=== PATIENT | male | born 1985 | race Caucasian/White ===

== ENCOUNTER 2016-11-27 21:20 | Emergency (ER) | payer OTHER ==
--- NOTE | 2016-11-27 22:22 | ERPHSYRPT ---
- History of Present Illness Time Seen by Provider: 11/27/16 22:14 Source: patient Exam Limitations: no limitations Patient Subjective Stated Complaint: per pt "i was using my leg a lot at work the other day. since then, it has been very swollen. i felt like i could not hardly walk on it when i woke up this morning. i worked all day today, but just can't take it any more" Triage Nursing Assessment: aox3, breathign easy unalbored,skin pink warm dry, steady limping gait, swellig noted to right lower extremity Physician History: Patient is a 31-year-old male with a significant past medical surgical history of intramedullary susan in his right tibia followed by of plates and screws after the susan had broken the shaft of the tibia. 3 days ago the patient was using the foot control pills on a bulldozer with his right leg and noticed the next day that his leg was hurting especially at the knee. Then 2 days ago he was transferred to another piece of equipment where he didn't have to use his right leg. Then this weekend he was helping a friend with work around the house. He states that for the past 2-3 days his right knee has been swollen and painful. It feels like it catches and moves out of place every so often while walking. Method of Injury: unknown Occurred: days ago (3) Quality: aching, sharpness Severity of Pain-Max: moderate Severity of Pain-Current: moderate Lower Extremities Pain: knee: right Modifying Factors: Improves With: cold therapy Associated Symptoms: popping sensation Allergies/Adverse Reactions: No Known Drug Allergies Allergy (Verified 11/27/16 21:47) Hx Tetanus, Diphtheria Vaccination/Date Given: No Hx Influenza Vaccination/Date Given: No Hx Pneumococcal Vaccination/Date Given: No - Review of Systems Constitutional: No Fever, No Chills Eyes: No Symptoms Ears, Nose, & Throat: No Symptoms Respiratory: No Cough, No Dyspnea Cardiac: No Chest Pain, No Edema, No Syncope Abdominal/Gastrointestinal: No Abdominal Pain, No Nausea, No Vomiting, No Diarrhea Genitourinary Symptoms: No Dysuria Musculoskeletal: Joint Pain, Joint Swelling Skin: No Rash Neurological: No Dizziness, No Focal Weakness, No Sensory Changes Psychological: No Symptoms Endocrine: No Symptoms Hematologic/Lymphatic: No Symptoms Immunological/Allergic: No Symptoms All Other Systems: Reviewed and Negative - Past Medical History Pertinent Past Medical History: Yes Neurological History: Migraines ENT History: No Pertinent History Cardiac History: No Pertinent History Respiratory History: No Pertinent History Endocrine Medical History: No Pertinent History Musculoskeletal History: Fractures, Other GI Medical History: No Pertinent History History: No Pertinent History Psycho-Social History: Depression Male Reproductive Disorders: No Pertinent History Other Medical History: states has had lyme disease. GOUT - Past Surgical History Past Surgical History: Yes Neuro Surgical History: No Pertinent History Cardiac: No Pertinent History Respiratory: No Pertinent History Gastrointestinal: No Pertinent History Genitourinary: No Pertinent History Musculoskeletal: Orthopedic Surgery Male Surgical History: No Pertinent History Other Surgical History: RIGHT LOWER LEG - Social History Smoking Status: Never smoker How long have you smoked: YRS Exposure to second hand smoke: No Alcohol Use: Socially Drug Use: none Patient Lives Alone: No Significant Family History: no pertinent family hx - Nursing Vital Signs Nursing Vital Signs: Initial Vital Signs Temperature 98.7 F Temperature Source Oral Pulse Rate 81 Respiratory Rate 16 Blood Pressure [Right Arm] 141/83 Pain Intensity 7 - Physical Exam General Appearance: mild distress Eyes, Ears, Nose, Throat Exam: moist mucous membranes Neck Exam: non-tender, supple Cardiovascular/Respiratory Exam: chest non-tender, normal breath sounds, regular rate/rhythm, no respiratory distress Gastrointestinal/Abdominal Exam: non-tender, guarding Back Exam: normal inspection, No vertebral tenderness Hips Exam: bilateral: non-tender, normal inspection Knees Exam: right knee: nodules (Examination of the right knee and proximal lower leg reveals old scarring from prior surgeries. There is swelling with possible effusion of the right knee. There is significant medial joint line tenderness of the right knee. There is pain elicited on varus maneuver of the right knee.) Ankle Exam: bilateral ankle: non-tender Foot Exam: bilateral foot: non-tender Neuro/Tendon Exam: normal sensation, normal motor functions Mental Status Exam: alert, oriented x 3, cooperative Skin Exam: normal color, warm, dry SpO2 Interpretation: normal SpO2: 97 Oxygen Delivery: Room Air - Radiology Exams Right Lower Leg X-ray Interpretation: Interpreted by me, No Fracture, Other (ORIF hardware intact, Callous formation in proximal tibia and fibula, No acute bony abnormalities.) Right Knee X-ray Interpretation: Interpreted by me, No Fracture, Other (Hardware intact, no acute bony abnormalities.) Ordered Tests: Active Orders 24 hr Category Date Time Status Cold Application STAT Care 11/27/16 22:27 Active KNEE (3 VIEWS) Stat Exams 11/27/16 22:28 Ordered LOWER LEG Stat Exams 11/27/16 22:28 Ordered Medication Summary Discontinued Medications Generic Name Dose Route Start Last Admin Trade Name Mathieu PRN Reason Stop Dose Admin Ketorolac Tromethamine 60 mg 11/27/16 22:27 11/27/16 22:38 Toradol 30 Mg Injection IM 11/27/16 22:28 60 mg STAT ONE Administration Ketorolac Tromethamine Confirm 11/27/16 22:36 Toradol 30 Mg Injection Administered 11/27/16 22:37 Dose 60 mg .ROUTE .STK-MED ONE - Progress Progress: improved Counseled pt/family regarding: diagnosis, need for follow-up, rad results - Departure Time of Disposition: 23:24 Departure Disposition: Home Clinical Impression: Knee pain Condition: Stable Critical Care Time: No Additional Instructions: The x-rays of your knee and leg on the right side did not show any acute abnormalities, although you do have chronic changes present in the knee. The swelling that you have experienced could be due to an overuse of the knee and the chronic conditions that are present or he could be due to a meniscal injury. Take naproxen 500 mg twice a day as needed and ice her knee as needed. Follow-up with your primary medical doctor for further care. Prescriptions: Naproxen 500 mg PO BID PRN #30 tablet
[2016-11-27] MEDS ORDERED: TORAdol 30 mg Injection IM ONE (22:27)
[2016-11-27] MEDS ORDERED: TORAdol 30 mg Injection ONE (22:36)
[2016-11-27 22:58] VITALS: BP 141/83; PULSE 81
[2016-11-27 23:26] VITALS: O2SAT 97
--- NOTE | 2016-11-28 08:44 | XRAY ---
Indication: Pain and swelling. No recent injury. Comparison: None 4 projections of the right knee demonstrates tiny inferior patellar spurring and old fractures of the proximal tibia/fibula with intact tibial plateau fixation plate/screws and adjacent heterotopic ossifications. No other bony, articular, or soft tissue abnormalities.
--- NOTE | 2016-11-28 08:46 | XRAY ---
Indication: Pain and swelling. No recent injury. Comparison: None AP/lateral right lower leg demonstrates spurring of the patella and calcaneus with old fractures of the proximal tibia/fibula with intact tibial plateau fixation plate/screws and adjacent heterotopic ossifications. No other bony, articular, or soft tissue abnormalities.
== END 2016-11-27 23:36 | disposition home or self-care (01) ==
LOC: ED 21:20
DX: M25.561 Pain in right knee (principal); M25.461 Effusion, right knee; X50.0XXA Overexertion from strenuous movement or load, initial encounter
CPT/HCPCS: 73562; 73590; 96372; 99284; J1885

== ENCOUNTER 2016-11-30 12:03 | Emergency (ER) | payer OTHER ==
[2016-11-30] MEDS ORDERED: solu-MEDROL 125 MG ONE (14:03)
[2016-11-30] MEDS ORDERED: solu-MEDROL 125 MG IV ONE (14:09)
[2016-11-30 14:21] VITALS: BP 157/87; PULSE 70; O2SAT 100
--- NOTE | 2016-11-30 14:48 | ERPHSYRPT ---
- History of Present Illness Time Seen by Provider: 11/30/16 12:45 Source: patient Exam Limitations: no limitations Patient Subjective Stated Complaint: LT FOOT PAIN SINCE 0300 Triage Nursing Assessment: STATES HE FEELS LIKE IT IS GOUT PAIN SINCE 0300 THIS MORNING. DENIES INJURY. NO SWELLING OR BRUISING NOTED. RADIAL PULSE PRESENT. DORSAL LT FOOT PAIN FROM ANKLE TO TOES. Physician History: C/O left foot pain like prior episodes of gout. He was given perscription for Naproxen 2 days ago, but did not get it filled. He wishes a shot like he has had previously for his gout. 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.) Occurred: yesterday Quality: constant Severity of Pain-Max: moderate Severity of Pain-Current: moderate Modifying Factors: Improves With: movement Allergies/Adverse Reactions: No Known Drug Allergies Allergy (Verified 11/30/16 12:49) Hx Tetanus, Diphtheria Vaccination/Date Given: Yes Hx Influenza Vaccination/Date Given: No Hx Pneumococcal Vaccination/Date Given: No Immunizations Up to Date: Yes - Review of Systems Constitutional: No Symptoms Eyes: No Symptoms Ears, Nose, & Throat: No Symptoms Respiratory: No Symptoms Cardiac: No Symptoms Abdominal/Gastrointestinal: No Symptoms Musculoskeletal: Joint Pain Skin: No Symptoms Neurological: No Symptoms Psychological: No Symptoms Endocrine: No Symptoms Hematologic/Lymphatic: No Symptoms - Past Medical History Pertinent Past Medical History: Yes Neurological History: Migraines ENT History: No Pertinent History Cardiac History: No Pertinent History Respiratory History: No Pertinent History Endocrine Medical History: No Pertinent History Musculoskeletal History: Fractures, Other GI Medical History: No Pertinent History History: No Pertinent History Psycho-Social History: Depression Male Reproductive Disorders: No Pertinent History Other Medical History: states has had lyme disease. GOUT - Past Surgical History Past Surgical History: Yes Neuro Surgical History: No Pertinent History Cardiac: No Pertinent History Respiratory: No Pertinent History Gastrointestinal: No Pertinent History Genitourinary: No Pertinent History Musculoskeletal: Orthopedic Surgery Male Surgical History: No Pertinent History Other Surgical History: RIGHT LOWER LEG-SCREWS/PLATES - Social History Smoking Status: Never smoker How long have you smoked: YRS Exposure to second hand smoke: No Alcohol Use: Socially Drug Use: none Patient Lives Alone: Yes Significant Family History: no pertinent family hx - Nursing Vital Signs Nursing Vital Signs: Initial Vital Signs Temperature 97.9 F Temperature Source Oral Pulse Rate 70 Respiratory Rate 18 Blood Pressure [Right Arm] 157/87 Pain Intensity 2 - Physical Exam General Appearance: mild distress Eyes, Ears, Nose, Throat Exam: normal ENT inspection, pharynx normal Neck Exam: normal inspection, non-tender, supple, full range of motion Cardiovascular/Respiratory Exam: chest non-tender, regular rate/rhythm Back Exam: normal inspection Hips Exam: bilateral: non-tender Legs Exam: bilateral leg: non-tender Knees Exam: bilateral knee: non-tender Ankle Exam: bilateral ankle: non-tender Foot Exam: left foot: no evidence of injury, pain, soft tissue tenderness, swelling Neuro/Tendon Exam: normal sensation, normal motor functions, normal tendon functions Mental Status Exam: alert, oriented x 3, cooperative Skin Exam: normal color, warm, dry SpO2 Interpretation: normal SpO2: 100 Oxygen Delivery: Room Air - Course Nursing assessment & vital signs reviewed: Yes Ordered Tests: Medication Summary Discontinued Medications Generic Name Dose Route Start Last Admin Trade Name Freq PRN Reason Stop Dose Admin Methylprednisolone Sodium Succinate Confirm 11/30/16 14:03 Solu-Medrol 125 Mg Administered 11/30/16 14:04 Dose 125 mg .ROUTE .STK-MED ONE Methylprednisolone Sodium Succinate 125 mg 11/30/16 14:09 11/30/16 14:10 Solu-Medrol 125 Mg IV 11/30/16 14:10 125 mg STAT ONE Administration - Progress Progress: improved Counseled pt/family regarding: diagnosis, need for follow-up - Departure Time of Disposition: 14:45 Departure Disposition: Home Clinical Impression: Gout due to renal impairment, left ankle and foot Gout Qualifiers: Gout site: foot Gout etiology: unspecified cause Laterality: left Chronicity: acute Qualified Code(s): M10.9 - Gout, unspecified Condition: Stable Critical Care Time: No
== END 2016-11-30 15:04 | disposition home or self-care (01) ==
LOC: ED 12:03
DX: N28.9 Disorder of kidney and ureter, unspecified (principal); M10.372 Gout due to renal impairment, left ankle and foot
CPT/HCPCS: 96372; 99284; J2930

== ENCOUNTER 2017-01-23 22:02 | Emergency (ER) | payer OTHER ==
[2017-01-23 23:14] VITALS: BP 150/84
--- NOTE | 2017-01-23 23:35 | ERPHSYRPT ---
- History of Present Illness Time Seen by Provider: 01/23/17 23:26 Source: patient Patient Subjective Stated Complaint: PT REPORTS CHISEL EXPLODED ET HE FELT A PIECE OF METAL GO INTO HIS RIGHT ARM-REPORTS PAIN IRRITATION Triage Nursing Assessment: PT PINK WARM ET [id number] EASY ET NONLABORED- REDNESS NOTED TO AC OF RIGHT ARM BLEEDING CONTROLLED Physician History: This is a 31-year-old white male previously healthy he arrives with complaint of foreign body in his right arm since around 9:30 this evening. According to the patient he was working with friend in a friend he was hammering with a chisel had a piece of the chisel came off and struck patient in the right antecubital fossa patient has a very small laceration to the right antecubital fossa he states he feels as if there is a foreign body in his right arm/antecubital area. He denies any other complaints. He states that his tetanus is up-to-date. Past medical history is positive for fractures and depression and Lyme disease as well as gout. Past surgical history ORIF right lower leg. . Occurred: this evening (9:30 this evening) Method of Injury: other ( hit bypiece of chisel right forearm) Extremities Pain Location: elbow: right (right antecubital area) Modifying Factors: Improves With: nothing Associated Symptoms: none Allergies/Adverse Reactions: No Known Drug Allergies Allergy (Verified 01/23/17 23:14) Home Medications: Febuxostat [Uloric] 40 mg PO DAILY 01/23/17 [History] Prednisone 10 mg [Deltasone 10 mg] 10 mg PO UD 01/23/17 [History] Hx Tetanus, Diphtheria Vaccination/Date Given: Yes Hx Influenza Vaccination/Date Given: No Hx Pneumococcal Vaccination/Date Given: No Immunizations Up to Date: Yes - Review of Systems Constitutional: No Fever, No Chills Eyes: No Symptoms Ears, Nose, & Throat: No Symptoms Respiratory: No Cough, No Dyspnea Cardiac: No Chest Pain, No Edema, No Syncope Abdominal/Gastrointestinal: No Abdominal Pain, No Nausea, No Vomiting, No Diarrhea Genitourinary Symptoms: No Dysuria Musculoskeletal: Other (foreign body sensation right arm antecubital area) Skin: No Rash Neurological: No Dizziness, No Focal Weakness, No Sensory Changes Psychological: No Symptoms Endocrine: No Symptoms All Other Systems: Reviewed and Negative - Past Medical History Pertinent Past Medical History: Yes Neurological History: Migraines ENT History: No Pertinent History Cardiac History: No Pertinent History Respiratory History: No Pertinent History Endocrine Medical History: No Pertinent History Musculoskeletal History: Fractures, Other GI Medical History: No Pertinent History History: No Pertinent History Psycho-Social History: Depression Male Reproductive Disorders: No Pertinent History Other Medical History: states has had lyme disease. GOUT - Past Surgical History Past Surgical History: Yes Neuro Surgical History: No Pertinent History Cardiac: No Pertinent History Respiratory: No Pertinent History Gastrointestinal: No Pertinent History Genitourinary: No Pertinent History Musculoskeletal: Orthopedic Surgery Male Surgical History: No Pertinent History Other Surgical History: RIGHT LOWER LEG-SCREWS/PLATES - Social History Smoking Status: Never smoker How long have you smoked: YRS Exposure to second hand smoke: No Alcohol Use: Socially Drug Use: none Patient Lives Alone: Yes Significant Family History: no pertinent family hx - Nursing Vital Signs Nursing Vital Signs: Initial Vital Signs Temperature 97.9 F Temperature Source Oral Pulse Rate 85 Respiratory Rate 22 Blood Pressure [] 150/84 Pain Intensity 2 - Physical Exam General Appearance: alert Eyes, Ears, Nose, Throat Exam: moist mucous membranes Neck Exam: non-tender, supple Cardiovascular/Respiratory Exam: chest non-tender Abdominal Exam: non-tender, No guarding Back Exam: normal inspection, No vertebral tenderness Shoulder Exam: normal inspection, non-tender, no evidence of injury, normal ROM Elbow/Forearm Exam: normal ROM, No normal inspection (very small 2 mm by less than 1 mmlaceration right anterior forearm) Wrist Exam: normal inspection, non-tender, no evidence of injury, normal ROM Hand Exam: normal inspection, non-tender, no evidence of injury, normal ROM Neuro/Tendon Exam: normal sensation, normal motor functions Mental Status Exam: alert, oriented x 3, cooperative Skin Exam: normal color, warm, dry, other (very small 2 mm by less than 1 mm laceration right anterior antecubital fossa) SpO2 Interpretation: normal SpO2: 100 Oxygen Delivery: Room Air - Radiology Exams Right Elbow X-ray Interpretation: Interpreted by me, Other (1 mm x 2 mm foreign body soft tissue right elbow) Ordered Tests: Active Orders 24 hr Category Date Time Status Wound Care STAT Care 01/23/17 23:37 Active ELBOW (MINIMUM 3 VIEWS) Stat Exams 01/23/17 23:17 Ordered Medication Summary Discontinued Medications Generic Name Dose Route Start Last Admin Trade Name Mathieu PRN Reason Stop Dose Admin Bacitracin 0.9 gm 01/23/17 23:37 Baciguent Packet TP 01/23/17 23:38 STAT ONE - Progress Progress: improved Progress Note: 01/23/17 23:38 This is a 31-year-old white male who was struck with a chip off of a chisel at around 9:30 he has a small laceration to the anterior right antecubital area. He has no neurologic changes he has good refill to his a right hand and fingers he has good strength his right hand and fingers sensation is intact to the right hand and fingers full range of motion to all extremities. X-rays of the patient's right elbow is remarkable for a 1 x 2 mm foreign body in the soft tissues of the right medial arm. I've talked with the patient is unadvisable to go exploring for this at this time we will go ahead and clean the area his tetanus is up-to-date Will recommend Advil for pain and follow-up with Dr. Maxwell. - Departure Time of Disposition: 23:40 Departure Disposition: Home Clinical Impression: Foreign body (FB) in soft tissue Condition: Fair Critical Care Time: No Additional Instructions: Return home, Clean area and apply bacitracin daily. Advil 2-3 tablets orally every 6 hours or Tylenol every 4 hours as needed for pain. Follow-up with Dr. Day or your family doctor. Return for acute distress or for severe symptoms. With that cold packs to area 24-48 hours.
[2017-01-23] MEDS ORDERED: BACIGUENT PACKET TP ONE (23:37)
[2017-01-23] MEDS ORDERED: BACIGUENT PACKET ONE (23:41)
[2017-01-23 23:57] VITALS: PULSE 81; O2SAT 97
--- NOTE | 2017-01-24 09:16 | XRAY ---
Indication: Foreign body following injury. Comparison: None 3 views of the right elbow demonstrates tiny 3 mm linear anterior soft tissue foreign body. No other bony, articular, or soft tissue abnormalities.
== END 2017-01-23 23:57 | disposition home or self-care (01) ==
LOC: ED 22:02
DX: S40.851A Superficial foreign body of right upper arm, initial encounter (principal); W22.8XXA Striking against or struck by other objects, initial encounter
CPT/HCPCS: 73080; 99283; A9270-GY

== ENCOUNTER 2021-06-14 23:59 | Emergency (ER) | payer BC ==
[2021-06-15] MEDS ORDERED: Rocephin 1000 MG INJ IM ONE (00:28)
[2021-06-15] MEDS ORDERED: XYLOCAINE 1% HCL 20 ML MDV IJ ONE (00:29)
[2021-06-15] MEDS ORDERED: Rocephin 1000 MG INJ ONE (00:29)
--- NOTE | 2021-06-15 00:34 | ERPHSYRPT ---
- History of Present Illness Source: patient Exam Limitations: no limitations Patient Subjective Stated Complaint: C/O hearing loss and ear pain. Pain in left ear is worse than the right ear. States he was seen on for throat and ear pain and was diagnosed with strep throat and given a z-pack atb. States that it "feels like I am underwater" most of the time. States pain in ears increases when lying down so he prefers to sit up. States he no longer has any pain in his throat. Triage Nursing Assessment: Throat is red and swollen wit some pustules present. Patient is noted to have difficulties hearing; must speak in a loud, clear tone during assessment. This nurse had to repeat herself at times due to hearing impairment. No drainage noted from ears. Physician History: 36 yo wm w B otalgia x4 days. Pt just finished a Zpak yesterday for pharyngitis(empirical diagnosis). He has had mild coryza/mild cough wo fever/nausea/vomiting/ diarrhea. Timing/Duration: other (4 days) Cough Quality/Degree: dry cough Possible Cause: no prior episodes Associated Symptoms: cough, earache, nasal congestion, nasal drainage, sore throat, No fever, No chills, No chest pain/soreness, No dizziness, No facial pain, No headache, No muscle aches, No shortness of breath, No sinus infection, No wheezing Allergies/Adverse Reactions: No Known Drug Allergies Allergy (Verified 06/15/21 00:23) Hx Tetanus, Diphtheria Vaccination/Date Given: Yes Hx Influenza Vaccination/Date Given: No Hx Pneumococcal Vaccination/Date Given: No Immunizations Up to Date: Yes Travel Risk - International Travel Have you traveled outside of the country in past 3 weeks: No - Coronavirus Screening Are you exhibiting any of the following symptoms?: No Close contact with a COVID-19 positive Pt in past 14-21 Days: No - Vaccine Status Have you recieved a Covid-19 vaccination: No - Review of Systems Constitutional: No Symptoms Eyes: No Symptoms Ears, Nose, & Throat: No Symptoms, Ear Pain, Hearing Changes, Nose Congestion, Nose Discharge Respiratory: No Symptoms, Cough Cardiac: No Symptoms Abdominal/Gastrointestinal: No Symptoms Genitourinary Symptoms: No Symptoms Musculoskeletal: No Symptoms Skin: No Symptoms Neurological: No Symptoms Psychological: No Symptoms Endocrine: No Symptoms Hematologic/Lymphatic: No Symptoms Immunological/Allergic: No Symptoms - Past Medical History Pertinent Past Medical History: Yes Neurological History: Migraines ENT History: No Pertinent History Cardiac History: No Pertinent History Respiratory History: No Pertinent History Endocrine Medical History: No Pertinent History Musculoskeletal History: Fractures, Other GI Medical History: No Pertinent History History: No Pertinent History Psycho-Social History: Depression Male Reproductive Disorders: No Pertinent History Other Medical History: states has had lyme disease. GOUT - Past Surgical History Past Surgical History: Yes Neuro Surgical History: No Pertinent History Cardiac: No Pertinent History Respiratory: No Pertinent History Gastrointestinal: Appendectomy Genitourinary: No Pertinent History Musculoskeletal: Orthopedic Surgery Male Surgical History: No Pertinent History Other Surgical History: RIGHT LOWER LEG-SCREWS/PLATES, Knee scope - Social History Smoking Status: Former smoker How long have you smoked: YRS Exposure to second hand smoke: No Alcohol Use: Socially Drug Use: none Patient Lives Alone: Yes Significant Family History: no pertinent family hx - Nursing Vital Signs Nursing Vital Signs: Initial Vital Signs Temperature 97.8 F 06/15/21 00:07 Pulse Rate 117 H 06/15/21 00:07 Respiratory Rate 17 06/15/21 00:07 Blood Pressure 161/119 06/15/21 00:07 O2 Sat by Pulse Oximetry 97 06/15/21 00:07 Pain Scale Pain Intensity [Both ears] 8 Pain Intensity 8 Tachy/hypertensive - Physical Exam General Appearance: no apparent distress Eye Exam: PERRL/EOMI, eyes nml inspection Ears, Nose, Throat Exam: moist mucous membranes, TM abnormal (R) (Erythema w poor landmarks), TM abnormal (L) (Erythema w poor landmarks), pharyngeal erythema Neck Exam: normal inspection, non-tender, supple, full range of motion, No meningismus, No mass, No Brudzinski, No Kernig's Respiratory Exam: normal breath sounds, lungs clear, airway intact, No respiratory distress Cardiovascular Exam: tachycardia (Mildly tachy), No murmur Gastrointestinal/Abdomen Exam: soft, normal bowel sounds, No tenderness Back Exam: normal inspection, normal range of motion Extremity Exam: normal inspection, normal range of motion Neurologic Exam: alert, oriented x 3, cooperative, 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, normal mood/affect, nml station & gait Skin Exam: normal color, warm, dry, No rash Lymphatic Exam: No adenopathy SpO2 Interpretation: normal SpO2: 97 O2 Delivery: Room Air - Course Nursing assessment & vital signs reviewed: Yes Ordered Tests: Medication Summary Discontinued Medications Generic Name Dose Route Start Last Admin Trade Name Mathieu PRN Reason Stop Dose Admin Ceftriaxone Sodium 1,000 mg 06/15/21 00:28 06/15/21 00:31 Rocephin 1000 Mg Inj IM 06/15/21 00:29 1,000 mg STAT ONE Administration Ceftriaxone Sodium Confirm 06/15/21 00:29 Rocephin 1000 Mg Inj Administered 06/15/21 00:30 Dose 1,000 mg .ROUTE .STK-MED ONE Ketorolac Tromethamine 60 mg 06/15/21 00:43 06/15/21 00:46 Toradol 30 Mg Injection IM 06/15/21 00:44 60 mg STAT ONE Administration Ketorolac Tromethamine Confirm 06/15/21 00:45 Toradol 30 Mg Injection Administered 06/15/21 00:46 Dose 60 mg .ROUTE .STK-MED ONE - Progress Progress Note: 06/15/21 00:37 1gm IM Rocephin Counseled pt/family regarding: diagnosis, need for follow-up - Departure Departure Disposition: Home Clinical Impression: Otitis media Condition: Stable Critical Care Time: No Referrals: JUNO FRAZIER NP [Primary Care Provider] - Additional Instructions: Start Augmentin in the morning Motrin/Tylenol for pain Follow up with your family MD about blood pressure Prescriptions: Amoxicillin/Potassium Clav [Augmentin 875-125 Tablet] 1 each PO BID 10 Days #20 tablet
[2021-06-15] MEDS ORDERED: TORAdol 30 mg Injection IM ONE (00:43)
[2021-06-15] MEDS ORDERED: TORAdol 30 mg Injection ONE (00:45)
[2021-06-15 00:58] VITALS: BP 152/112; PULSE 106; O2SAT 95
== END 2021-06-15 01:01 | disposition home or self-care (01) ==
LOC: ED 23:59
DX: H66.93 Otitis media, unspecified, bilateral (principal)
CPT/HCPCS: 96372; 99284; J0696; J1885

== ENCOUNTER 2021-09-18 13:57 | Emergency (ER) | payer BC ==
[2021-09-18] MEDS ORDERED: MORPHINE SULFATE 4 MG INJ IV ONE (14:20)
[2021-09-18] MEDS ORDERED: Zofran 4 MG/2 ML VIAL IV ONE (14:20)
--- NOTE | 2021-09-18 14:27 | ERPHSYRPT ---
- History of Present Illness Time Seen by Provider: 09/18/21 14:02 Historian: patient Exam Limitations: no limitations Patient Subjective Stated Complaint: Pt states "I have pain in my bladder and both sides of lower abdomen." Triage Nursing Assessment: Pt presented alert and oriented X 3, skin pwd Pt ambulates with an upright steady gait, able to speak in clear full sentences pt in no apaprent respiratory distress. Physician History: 36-year-old male presented in the ER with chief complaint of lower abdominal pain since last night, moderate intensity, reports razor blade pain intermittent without any significant aggravating or relieving factors. Patient thinks it is probably bladder infection and has been taking Azo with no significant relief. Radiation to the back without associated nausea vomiting or diarrhea. Timing/Duration: yesterday, constant, gradual onset, worse Activities at Onset: rest Quality: sharpness Abdominal Pain Onset Location: RLQ, LLQ, suprapubic Pain Radiation: back Severity of Pain-Max: severe Severity of Pain-Current: moderate Modifying Factors: Worsens With: movement, palpation Associated Symptoms: back Previous symptoms: no prior history Allergies/Adverse Reactions: No Known Drug Allergies Allergy (Verified 06/15/21 00:23) Home Medications: Allopurinol 300 mg [Zyloprim 300 mg] 300 mg PO DAILY 09/18/21 [History] Hx Tetanus, Diphtheria Vaccination/Date Given: Yes Hx Influenza Vaccination/Date Given: No Hx Pneumococcal Vaccination/Date Given: No Immunizations Up to Date: Yes Travel Risk - International Travel Have you traveled outside of the country in past 3 weeks: No - Coronavirus Screening Are you exhibiting any of the following symptoms?: No Close contact with a COVID-19 positive Pt in past 14-21 Days: No - Vaccine Status Have you recieved a Covid-19 vaccination: No - Review of Systems Constitutional: No Symptoms Eyes: No Symptoms Ears, Nose, & Throat: No Symptoms Respiratory: No Symptoms Cardiac: No Symptoms Abdominal/Gastrointestinal: No Symptoms Genitourinary Symptoms: Dysuria Musculoskeletal: No Symptoms Skin: No Symptoms Neurological: No Symptoms Psychological: No Symptoms Endocrine: No Symptoms Hematologic/Lymphatic: No Symptoms Immunological/Allergic: No Symptoms - Past Medical History Pertinent Past Medical History: Yes Neurological History: Migraines ENT History: No Pertinent History Cardiac History: No Pertinent History Respiratory History: No Pertinent History Endocrine Medical History: No Pertinent History Musculoskeletal History: Fractures, Other GI Medical History: No Pertinent History History: No Pertinent History Psycho-Social History: Depression Male Reproductive Disorders: No Pertinent History Other Medical History: states has had lyme disease. GOUT - Past Surgical History Past Surgical History: Yes Neuro Surgical History: No Pertinent History Cardiac: No Pertinent History Respiratory: No Pertinent History Gastrointestinal: Appendectomy Genitourinary: No Pertinent History Musculoskeletal: Orthopedic Surgery Male Surgical History: No Pertinent History Other Surgical History: RIGHT LOWER LEG-SCREWS/PLATES, Knee scope - Social History Smoking Status: Former smoker How long have you smoked: YRS Exposure to second hand smoke: No Alcohol Use: Socially Drug Use: none Patient Lives Alone: Yes Significant Family History: no pertinent family hx - Nursing Vital Signs Nursing Vital Signs: Initial Vital Signs Temperature 98.5 F 09/18/21 14:04 Pulse Rate 108 H 09/18/21 14:04 Respiratory Rate 20 09/18/21 14:04 Blood Pressure 178/108 09/18/21 14:04 O2 Sat by Pulse Oximetry 98 09/18/21 14:04 Pain Scale Pain Intensity 4 - Physical Exam General Appearance: no apparent distress, alert Eye Exam: PERRL/EOMI, eyes nml inspection Ears, Nose, Throat Exam: normal ENT inspection, TMs normal, pharynx normal Neck Exam: normal inspection, non-tender, supple, full range of motion Respiratory Exam: normal breath sounds, lungs clear Cardiovascular Exam: regular rate/rhythm, normal heart sounds Gastrointestinal/Abdomen Exam: soft, normal bowel sounds, tenderness (Lower abdomen more on the suprapubic and left lower quadrant) Male Genitalia Exam: No hernia Back Exam: normal inspection, normal range of motion, No CVA tenderness Extremity Exam: normal inspection, normal range of motion, pelvis stable Neurologic Exam: alert, oriented x 3, cooperative Skin Exam: normal color SpO2 Interpretation: normal SpO2: 98 O2 Delivery: Room Air Ordered Tests: Active Orders 24 hr Category Date Time Status IV Insertion STAT Care 09/18/21 14:20 Completed NPO (ED) STAT Care 09/18/21 14:20 Completed ABDOMEN AND PELVIS W/0 CONTRAS [CT] Stat Exams 09/18/21 14:21 Completed CBC W DIFF Stat Lab 09/18/21 14:55 Completed CMP Stat Lab 09/18/21 14:55 Completed LIPASE Stat Lab 09/18/21 14:55 Completed UA W/RFX UR CULTURE Stat Lab 09/18/21 14:21 Completed Medication Summary Discontinued Medications Generic Name Dose Route Start Last Admin Trade Name Mathieu PRN Reason Stop Dose Admin Amoxicillin/Clavulanate Potassium 875 mg 09/18/21 15:48 09/18/21 15:52 Amox Tr/Potassium Clavulanate 875 Mg Tablet PO 09/18/21 15:49 875 mg STAT ONE Administration Amoxicillin/Clavulanate Potassium Confirm 09/18/21 15:51 Amox Tr/Potassium Clavulanate 875 Mg Tablet Administered 09/18/21 15:52 Dose 875 mg .ROUTE .STK-MED ONE Morphine Sulfate 4 mg 09/18/21 14:20 09/18/21 14:44 Morphine Sulfate 4 Mg/Ml Injection IV 09/18/21 14:21 4 mg STAT ONE Administration Morphine Sulfate Confirm 09/18/21 14:33 Morphine Sulfate 4 Mg/Ml Injection Administered 09/18/21 14:34 Dose 4 mg .ROUTE .STK-MED ONE Ondansetron HCl 4 mg 09/18/21 14:20 09/18/21 14:44 Ondansetron Hcl 4 Mg/2 Ml Vial IV 09/18/21 14:21 4 mg STAT ONE Administration Ondansetron HCl Confirm 09/18/21 14:33 Ondansetron Hcl 4 Mg/2 Ml Vial Administered 09/18/21 14:34 Dose 4 mg .ROUTE .STK-MED ONE Lab/Rad Data: Laboratory Result Diagrams 09/18/21 14:55 09/18/21 14:55 Laboratory Results 09/18/21 09/18/21 09/18/21 Range/Units 14:55 14:55 14:21 WBC 11.8 H (4.0-10.5) K/mm3 RBC 5.38 (4.1-5.6) M/mm3 Hgb 15.4 (12.5-18.0) gm/dl Hct 46.9 (42-50) % MCV 87.2 (78-100) fl MCH 28.6 (26-32) pg MCHC 32.8 (32-36) g/dl RDW 14.0 (11.5-14.0) % Plt Count 209 (150-450) K/mm3 MPV 10.8 (7.5-11.0) fl Gran % 78.6 H (36.0-66.0) % Eos # (Auto) 0.06 (0-0.5) Absolute Lymphs (auto) 1.25 (1.0-4.6) Absolute Monos (auto) 1.19 (0.0-1.3) Lymphocytes % 10.6 L (24.0-44.0) % Monocytes % 10.1 (0.0-12.0) % Eosinophils % 0.5 (0.00-5.0) % Basophils % 0.2 (0.0-0.4) % Absolute Granulocytes 9.26 H (1.4-6.9) Basophils # 0.02 (0-0.4) Sodium 134 L (137-145) mmol/L Potassium 4.5 (3.5-5.1) mmol/L Chloride 99 (98-107) mmol/L Carbon Dioxide 27 (22-30) mmol/L Anion Gap 13.0 (5-15) MEQ/L BUN 14 (9-20) mg/dL Creatinine 0.92 (0.66-1.25) mg/dL Estimated GFR > 60.0 ML/MIN Glucose 111 H (74-106) mg/dL Calcium 9.3 (8.4-10.2) mg/dL Total Bilirubin 0.90 (0.2-1.3) mg/dL AST 19 (17-59) U/L ALT 21 (0-50) U/L Alkaline Phosphatase 64 (38-126) U/L Serum Total Protein 7.4 (6.3-8.2) g/dL Albumin 4.4 (3.5-5.0) g/dL Lipase 110 (23-300) U/L Urine Color CHADD (YELLOW) Urine Appearance CLEAR (CLEAR) Urine pH 5.0 (5-6) Ur Specific [place] 1.016 (1.005-1.025) Urine Protein NEGATIVE (Negative) Urine Ketones NEGATIVE (NEGATIVE) Urine Blood NEGATIVE (0-5) Darío/ul Urine Nitrite COLOR INTERFERENCE (NEGATIVE) Urine Bilirubin NEGATIVE (NEGATIVE) Urine Urobilinogen 4 (0-1) mg/dL Ur Leukocyte Esterase NEGATIVE (NEGATIVE) Urine WBC (Auto) NONE (0-5) /HPF Urine RBC (Auto) NONE (0-2) /HPF U Epithel Cells (Auto) NONE (FEW) /HPF Urine Bacteria (Auto) NONE SEEN (NEGATIVE) /HPF Urine Mucus (Auto) SLIGHT (NEGATIVE) /HPF Urine Culture Reflexed NO (NO) Urine Glucose NEGATIVE (NEGATIVE) mg/dL - Progress Progress: improved, re-examined Progress Note: 09/18/21 15:48 36 years old is evaluated for lower abdominal pain. Given morphine for symptomatic relief: Reevaluation patient is pain-free. Has a white count of 11, grossly unremarkable chemistries and no UTI. CT abdomen pelvis showed sigmoid diverticulitis without perforation/abscess. Patient is hemodynamically stable and I think it can be managed outpatient. Started on Augmentin. Outpatient fo llow-up recommended. Discussed signs symptoms of worsening needing return to ER which he seems understanding. Stable for discharge. Counseled pt/family regarding: lab results, diagnosis, need for follow-up, rad results - Departure Departure Disposition: Home Clinical Impression: Sigmoid diverticulitis Condition: Stable Critical Care Time: No Referrals: JUNO FRAZIER NP [Primary Care Provider] - Follow up/PCP as directed (In 2 days for reevaluation) Instructions: Diverticulitis (DC) Additional Instructions: Take Tylenol/ibuprofen as needed for pain. Follow-up with primary care for reevaluation in 2 days. Return to ER for worsening/intractable pain/rectal bleeding/fever chills etc. Prescriptions: Ibuprofen 600 mg PO Q6HPRN PRN 10 Days #20 tablet PRN Reason: Pain Amox Tr/Potass Clav. 875 mg [Augmentin 875-125 Tablet] 875 mg PO BID #20 tablet
[2021-09-18] MEDS ORDERED: MORPHINE SULFATE 4 MG INJ ONE (14:33)
[2021-09-18] MEDS ORDERED: Zofran 4 MG/2 ML VIAL ONE (14:33)
[2021-09-18 15:14] VITALS: BP 133/87; PULSE 96
[2021-09-18 15:26] LABS: Absolute Neutrophil Ct (ANC) 9.26 (1.4-6.9); Basophil (Absolute #) 0.02 (0-0.4); Eosinophil % 0.5 % (0.00-5.0); Eosinophil (Absolute #) 0.06 (0-0.5); Hematocrit 46.9 % (42-50); Hemoglobin 15.4 gm/dl (12.5-18.0); Lymphocyte (Absolute #) 1.25 (1.0-4.6); Lymphocytes % 10.6 % (24.0-44.0); Mean Cell Volume 87.2 fl (78-100); Mean Corpuscular Hemoglobin 28.6 pg (26-32); Mean Corpuscular Hgb Concent. 32.8 g/dl (32-36); Mean Platelet Volume 10.8 fl (7.5-11.0); Monocyte (Absolute #) 1.19 (0.0-1.3); Monocytes % 10.1 % (0.0-12.0); Neutrophil % 78.6 % (36.0-66.0); Platelet Count 209 K/mm3 (150-450); Red Blood Count 5.38 M/mm3 (4.1-5.6); White Blood Count 11.8 K/mm3 (4.0-10.5)
[2021-09-18 15:27] LABS: ALBUMIN 4.4 g/dL (3.5-5.0); ALKALINE PHOSPHATASE 64 U/L (38-126); BLOOD UREA NITROGEN 14 mg/dL (9-20); CHLORIDE 99 mmol/L (98-107); Calcium 9.3 mg/dL (8.4-10.2); Carbon Dioxide 27 mmol/L (22-30); Creatinine 1 0.92 mg/dL (0.66-1.25); EST GLOMERULAR FILTRATION RATE > 60.0 ML/MIN; Glucose 111 mg/dL (74-106); LIPASE 110 U/L (23-300); Potassium 4.5 mmol/L (3.5-5.1); SGOT/AST 19 U/L (17-59); SGPT/ALT 21 U/L (0-50); SODIUM 134 mmol/L (137-145); Total Protein 7.4 g/dL (6.3-8.2)
[2021-09-18 15:28] LABS: Appearance CLEAR (CLEAR); Bilirubin NEGATIVE (NEGATIVE); Blood NEGATIVE Ery/ul (0-5); Glucose NEGATIVE (NEGATIVE); Ketones NEGATIVE (NEGATIVE); Leukocyte Esterase NEGATIVE (NEGATIVE); Mucus SLIGHT /HPF (NEGATIVE); Protein,Urine Dip NEGATIVE (Negative); Specific Gravity 1.016 (1.005-1.025); Urobilinogen 4 mg/dL (0-1)
[2021-09-18 15:47] LABS: Bacteria NONE SEEN /HPF (NEGATIVE); Nitrite COLOR INTERFERENCE (NEGATIVE)
[2021-09-18] MEDS ORDERED: Augmentin 875-125 Tablet PO ONE (15:48)
[2021-09-18] MEDS ORDERED: Augmentin 875-125 Tablet ONE (15:51)
[2021-09-18 15:53] VITALS: O2SAT 98
--- NOTE | 2021-09-18 19:38 | XRAY ---
Indication: Abdomen pain. Painful urination. History renal stone. Multiple contiguous images obtained through the abdomen and pelvis without contrast using renal stone protocol. Comparison: September 14, 2015. Lung bases are clear. Heart not enlarged. No renal calculus or evidence for obstructive uropathy in either system. Noncontrasted stomach and bowel loops appear nonobstructed. Appendectomy reported. Again scattered descending/sigmoid diverticulosis with new proximal sigmoid diverticulitis and small free fluid. No walled off fluid collection or free air. Remaining liver, gallbladder, pancreas, spleen, adrenal glands, kidneys, ureters, bladder, and aorta are unremarkable for noncontrast exam. Osseous structures intact. Impression: 1. Continued negative renal calculus or evidence for obstructive uropathy. 2. New proximal sigmoid diverticulitis with small free fluid. Comment: Preliminary interpretation made by [facility]. No critical discrepancy.
== END 2021-09-18 16:01 | disposition home or self-care (01) ==
LOC: ED 13:57
DX: K57.32 Diverticulitis of large intestine without perforation or abscess without bleeding (principal)
CPT/HCPCS: 36000; 36415; 74176; 80053; 81001; 83690; 85025; 96374; 96375; 99284; J2270; J2405; A9270-GY

== ENCOUNTER 2022-12-30 06:02 | Day surgery (SDC) | payer BC ==
[2022-12-30] MEDS ORDERED: Lactated Ringers 1,000 ML IV SCH (06:30)
[2022-12-30] MEDS ORDERED: DIPRIVAN 200 MG/20 ML IV ONE ×2 (06:34→08:09)
[2022-12-30] MEDS ORDERED: Versed 2 MG/2 ML Injection ONE (06:34)
[2022-12-30] MEDS ORDERED: Xylocaine-Mpf 2% 5 Ml Vial ONE (08:04)
[2022-12-30 08:56] VITALS: O2SAT 96
[2022-12-30 09:20] VITALS: BP 140/90; PULSE 78
--- NOTE | 2022-12-30 11:18 | OP ---
SURGERY DATE/TIME: 12/30/2022 0803 PREOPERATIVE DIAGNOSIS: Abdominal pain and change in bowel habits, diagnosis of diverticulitis. POSTOPERATIVE DIAGNOSIS: Sigmoid diverticulosis. PROCEDURE: Colonoscopy. SURGEON: Dr. Summers. ANESTHESIA: MAC. Medications given by anesthesia department. HISTORY: The patient is a 37-year-old white male patient presenting now for colonoscopy. He had problems for the past two weeks with abdominal pain particular in the right lower quadrant. He had been diagnosed with diverticulitis and treated with medicine and got somewhat better. The bowel prep did make him feel better he reports. He was appraised of the risks of the procedure including the risk of perforation, phlebitis, untoward reaction to medication, bleeding and missed lesions. The patient verbalized his understanding and desired to have the procedure performed. DESCRIPTION OF PROCEDURE: The patient was given the medications by the anesthesia department. He had continuous pulse oximetry, ECG monitoring and intermittent blood pressure monitoring during the examination. He was placed in the left lateral decubitus position. Digital rectal examination was performed and revealed normal anal sphincter tone, no masses and normal prostate. The flexible Olympus pediatric colonoscope was used to intubate the rectum. A view of the colon was developed sequentially to the cecum. Upon insertion and withdrawal was noted to be moderate sigmoid diverticulosis. No specific area was found to be acutely inflamed or infected. There were no polyps and no colitis noted during the examination. The scope was removed from the patient who tolerated the procedure well and was sent back to OP recovery in good condition. The prep was noted to be fair to good.
== END 2022-12-30 09:25 | disposition home or self-care (01) ==
LOC: SDC 06:02
PROVIDERS: ATTEND Family Medicine
DX: K57.30 Diverticulosis of large intestine without perforation or abscess without bleeding (principal); R10.9 Unspecified abdominal pain; R19.4 Change in bowel habit; E11.9 Type 2 diabetes mellitus without complications
CPT/HCPCS: 46221; 82947; J2250; J2704

== ENCOUNTER 2023-02-22 19:03 | Emergency (ER) | payer BC ==
[2023-02-22] MEDS ORDERED: TORAdol 30 mg Injection IM ONE (19:28)
[2023-02-22] MEDS ORDERED: TORAdol 30 mg Injection ONE (19:33)
[2023-02-22 20:08] VITALS: O2SAT 98
--- NOTE | 2023-02-22 20:49 | ERPHSYRPT ---
- History of Present Illness Time Seen by Provider: 02/22/23 20:46 Source: patient Exam Limitations: no limitations Patient Subjective Stated Complaint: pt states "my right hip has been hurting since last and it goes down my leg and into my foot". pt reports that in 2017 his right hip "had to be put back in" by a chiropractor but hasn't had any other trouble since that time. Triage Nursing Assessment: pt ambulated independently with slow steady gait into room 9 after standing on scale for weight acquisition. slight limp noted, otherwise no ambulatory aid used. pt is alert and oriented times three, able to move all extremities, able to speak in complete sentences, and with resp even and unlabored. see right lower ext assessment below. pt describes pain as a "grinding" pain in right lateral buttock that travels down right leg. denies sob, nausea, vomiting, difficulty with urination or bowel elimination. Physician History: Patient is a 37-year-old male presents to our ED for evaluation of right hip pa in x6 days. Patient is concerned with hip dislocation. Patient states he had similar symptoms in 2017. Patient states his right hip was dislocated and reduced by a chiropractor at that time. Patient has been asymptomatic since up until recently. Patient's pain described as a grinding sensation. Pain is localized to the right posterolateral aspect of the right hip. Overlying soft tissue intact. There is soft tissue tenderness in this area. No back pain. Patient denies trauma. No fever. Patient otherwise voices no other complaints or concerns at this time. Portions of this note were created with voice recognition technology. There may be grammatical, spelling, punctuation or sound alike errors Method of Injury: unknown Occurred: days ago (6 days ago) Quality: constant Severity of Pain-Max: moderate Severity of Pain-Current: mild Lower Extremities Pain: hip: right Modifying Factors: Improves With: other (Weightbearing reproduces pain) Associated Symptoms: none Allergies/Adverse Reactions: No Known Drug Allergies Allergy (Verified 02/22/23 19:16) Home Medications: Allopurinol 300 mg [Zyloprim 300 mg] 300 mg PO DAILY 09/18/21 [History] Metformin HCl 500 mg [Glucophage 500 MG] 500 mg PO BIDWM 12/06/22 [History] Phentermine HCl 37.5 mg PO DAILY 12/06/22 [History] Hx Tetanus, Diphtheria Vaccination/Date Given: Yes Hx Influenza Vaccination/Date Given: No Hx Pneumococcal Vaccination/Date Given: No Immunizations Up to Date: Yes Travel Risk - International Travel Have you traveled outside of the country in past 3 weeks: No - Coronavirus Screening Are you exhibiting any of the following symptoms?: No Close contact with a COVID-19 positive Pt in past 14-21 Days: No - Vaccine Status Have you recieved a Covid-19 vaccination: No - Review of Systems Constitutional: No Symptoms, No Fever, No Chills Eyes: No Symptoms Ears, Nose, & Throat: No Symptoms Respiratory: No Symptoms, No Cough, No Dyspnea Cardiac: No Symptoms, No Chest Pain, No Edema, No Syncope Abdominal/Gastrointestinal: No Symptoms, No Abdominal Pain, No Nausea, No Vomiting, No Diarrhea Genitourinary Symptoms: No Symptoms, No Dysuria Musculoskeletal: No Symptoms, No Back Pain, No Neck Pain Skin: No Symptoms, No Rash Neurological: No Symptoms, No Dizziness, No Focal Weakness, No Sensory Changes Psychological: No Symptoms Endocrine: No Symptoms Hematologic/Lymphatic: No Symptoms Immunological/Allergic: No Symptoms All Other Systems: Reviewed and Negative - Past Medical History Pertinent Past Medical History: Yes Neurological History: Migraines ENT History: No Pertinent History Cardiac History: No Pertinent History Respiratory History: No Pertinent History Endocrine Medical History: No Pertinent History, Diabetes Type II Musculoskeletal History: Fractures, Other GI Medical History: No Pertinent History History: No Pertinent History Psycho-Social History: No Pertinent History Male Reproductive Disorders: No Pertinent History Other Medical History: states has had lyme disease. GOUT - Past Surgical History Past Surgical History: Yes Neuro Surgical History: No Pertinent History Cardiac: No Pertinent History Respiratory: No Pertinent History Gastrointestinal: Appendectomy Genitourinary: No Pertinent History Musculoskeletal: Orthopedic Surgery Male Surgical History: No Pertinent History Other Surgical History: RIGHT LOWER LEG-SCREWS/PLATES, Knee scope, back surgery - Social History Smoking Status: Never smoker How long have you smoked: YRS Exposure to second hand smoke: No Alcohol Use: Socially Drug Use: none Patient Lives Alone: No Significant Family History: no pertinent family hx - Nursing Vital Signs Nursing Vital Signs: Initial Vital Signs Temperature 97.8 F 02/22/23 19:19 Pulse Rate 76 02/22/23 19:19 Respiratory Rate 18 02/22/23 19:19 Blood Pressure 145/103 02/22/23 19:19 O2 Sat by Pulse Oximetry 97 02/22/23 19:19 Pain Scale Pain Intensity 5 - Physical Exam General Appearance: no apparent distress, alert Eyes, Ears, Nose, Throat Exam: moist mucous membranes Neck Exam: non-tender, supple Cardiovascular/Respiratory Exam: chest non-tender, normal breath sounds, regular rate/rhythm, no respiratory distress Gastrointestinal/Abdominal Exam: non-tender, soft, guarding Back Exam: normal inspection, normal range of motion, No vertebral tenderness Hips Exam: right: pain, soft tissue tenderness, other (Right lower extremity neurovascular intact distally. Compartments are soft. Cap refill less than 2 seconds.), left: non-tender, normal inspection, normal range of motion, no evidence of injury Legs Exam: bilateral leg: non-tender, normal inspection, normal range of motion, no evidence of injury Knees Exam: bilateral knee: non-tender, normal inspection, normal range of motion, no evidence of injury Ankle Exam: bilateral ankle: non-tender, normal inspection, normal range of motion, no evidence of injury Foot Exam: bilateral foot: non-tender, normal inspection, normal range of motion, no evidence of injury Neuro/Tendon Exam: normal sensation, normal motor functions, normal tendon functions Mental Status Exam: alert, oriented x 3, cooperative Skin Exam: normal color, warm, dry SpO2 Interpretation: normal SpO2: 98 O2 Delivery: Room Air - Course Nursing assessment & vital signs reviewed: Yes - CT Exams Lower Extremity CT Interpretation: Tele-radiologist Report (CT right hip continued normal. Right hip compared to 09/18/2021) Ordered Tests: Active Orders 24 hr Category Date Time Status LOWER EXTREMITY WO CONTRAST [CT] Stat Exams 02/22/23 19:22 Taken Medication Summary Discontinued Medications Generic Name Dose Route Start Last Admin Trade Name Freq PRN Reason Stop Dose Admin Ketorolac Tromethamine 60 mg 02/22/23 19:28 02/22/23 19:34 Ketorolac Tromethamine 30 Mg/Ml Inj IM 02/22/23 19:29 60 mg STAT ONE Administration Ketorolac Tromethamine Confirm 02/22/23 19:33 Ketorolac Tromethamine 30 Mg/Ml Inj Administered 02/22/23 19:34 Dose 60 mg .ROUTE .[employer]-MED ONE - Progress Progress: improved Progress Note: Patient is a 37-year-old male presents to our ED for evaluation of right hip pain. Patient was worried that his right hip was dislocated. Physical exam reveals tenderness at the posterior lateral aspect of the right hip. The extremity neurovascular intact distally. Testing ordered includes CT right hip. CT results was normal. Patient received Toradol and Decadron for pain control. A prescription for Toradol was forwarded to patient's pharmacy. Patient also received a referral to orthopedic clinic for follow-up. Portions of this note were created with voice recognition technology. There may be grammatical, spelling, punctuation or sound alike errors Complexity of problem addressed is low, acute uncomplicated Complex of data reviewed and analyzed is moderate. Dr. Fitch read the CT report and correlated the findings on the report clinically.The CT scan does not explain patient's symptomology. We will refer to higher level of care. Patient given a referral to the orthopedic clinic. Risk of complication and or risk of morbidity/mortality of patient management is moderate. Patient received IM Decadron and IM Toradol. A prescription for Toradol was forwarded to patient's pharmacy. Patient will follow-up in the orthopedic clinic tomorrow for further evaluation and treatment. No social determinants of health present to impede follow-up. Vital stable. Portions of this note were created with voice recognition technology. There may be grammatical, spelling, punctuation or sound alike errors 02/22/23 21:11 Counseled pt/family regarding: diagnosis, need for follow-up, rad results - Departure Departure Disposition: Home Clinical Impression: Hip pain, right Condition: Stable Critical Care Time: No Referrals: JUNO FRAZIER NP [Primary Care Provider] - Follow up/PCP as directed Additional Instructions: Discharge/Care Plan LILIYA MANCIA was seen on 02/22/23 in the Emergency Room. The patient was counseled regarding Diagnosis,Lab results, Imaging studies, need for follow up and when to return to the Emergency Room. Prescriptions given: Discharge Note I have spoken with the patient and/or caregivers. I have explained the patient's condition, diagnosis and treatment plan based on the information available to me at this time. I have answered the patient's and/or caregiver's questions and addressed any concerns. The patient and/or caregivers have as good understanding of the patient's diagnosis, condition and treatment plan as can be expected at this point. The vital signs have been stable. The patient's condition is stable and appropriate for discharge from the emergency department. The patient will pursue further outpatient evaluation with the primary care physician or other designated or consulting physician as outlined in the discharge instructions. The patient and/or caregivers are agreeable to this plan of care and follow-up instructions have been explained in detail. The patient and/or caregivers have received these instruction. The patient/and or caregivers are aware that any significant change in condition or worsening of symptoms should prompt an immediate return to this or the closest emergency department or call 911. Prescriptions: Ketorolac Trometh 10 mg Tab [TORAdol 10 MG TABLET] 10 mg PO TID 5 Days #15 tablet Outpatient Orders: Ortho Referral Time Frame: 1 Day, Facility: [facility], Location: [facility]
[2023-02-22 21:06] VITALS: BP 159/89; PULSE 68
[2023-02-22] MEDS ORDERED: DECADRON 10MG INJ. IM ONE (21:09)
[2023-02-22] MEDS ORDERED: DECADRON 10MG INJ. ONE (21:13)
--- NOTE | 2023-02-23 08:47 | XRAY ---
Indication: Pain. No known injury. Multiple contiguous axial images obtained through the right hip. Sagittal and coronal reformatted images obtained. Comparison: CT abdomen/pelvis September 18, 2021 No acute fracture or dislocation. Stable tiny bone island right pubic symphysis and right ischial tuberosity. Again incidental lumbosacral junction degenerative disc disease and tiny fatty right inguinal hernia. No suspicious bony lesions or osseous destructive process. Visualized noncontrasted soft tissues again demonstrates sigmoid diverticulosis. No suspicious solid/cystic soft tissue mass or abnormal fluid collection. Impression: Stable tiny right pubic symphysis/right ischial tuberosity bone islands, lumbosacral junction degenerative disc disease, sigmoid diverticulosis, and fatty right inguinal hernia. Remaining CT right hip negative.
== END 2023-02-22 21:37 | disposition home or self-care (01) ==
LOC: ED 19:03
DX: M25.551 Pain in right hip (principal); E11.9 Type 2 diabetes mellitus without complications; Z79.84 Long term (current) use of oral hypoglycemic drugs; Z79.899 Other long term (current) drug therapy; Z28.310 Unvaccinated for COVID-19
CPT/HCPCS: 73700; 96372; 99283; J1100; J1885

== ENCOUNTER 2024-10-11 05:59 | Emergency (ER) | payer BC ==
[2024-10-11 06:14] VITALS: RESP 20; TEMP 97.5
[2024-10-11] MEDS ORDERED: TORAdol 30 mg Injection ONE (06:41)
[2024-10-11] MEDS: Zofran 4 MG/2 ML VIAL IV ONE (06:41)
[2024-10-11] MEDS ORDERED: Zofran 4 MG/2 ML VIAL ONE (06:41)
[2024-10-11] MEDS: TORAdol 30 mg Injection IV ONE (06:42)
--- NOTE | 2024-10-11 06:48 | ERPHSYRPT ---
- History of Present Illness Historian: patient Exam Limitations: no limitations Patient Subjective Stated Complaint: pt states that lower abd pain Triage Nursing Assessment: pt ambulated into the er; pt is axo x4; c/o abd pain; pt states 10/10 pain to lower abd; pt denies N/V/D; last night BM 10/11/24; abd obsese, soft, tender; active bowel sounds in all quads; skin PDW; no respiratory distress present; tachycardic Hx Tetanus, Diphtheria Vaccination/Date Given: No Hx Influenza Vaccination/Date Given: No Hx Pneumococcal Vaccination/Date Given: No <LE WHITE - Last Filed: 10/11/24 06:46> <SHARONA NUNEZ - Last Filed: 10/11/24 08:12> - History of Present Illness Time Seen by Provider: 10/11/24 06:09 Physician History: 39 years old male with history of type 2 diabetes mellitus, diverticulitis presented in the ER with sudden onset lower abdominal pain across since 4 AM moderate to severe sharp, aggravated with palpation movements with no associated nausea vomiting or diarrhea. Reports having similar symptoms with diverticulitis in the past. No fever or chills reported. No known sick c ontact. (LE WHITE) Allergies/Adverse Reactions: No Known Drug Allergies Allergy (Verified 10/11/24 06:04) Home Medications: Allopurinol 300 mg [Zyloprim 300 mg] 300 mg PO DAILY 09/18/21 [History] Metformin HCl 500 mg [Glucophage 500 MG] 500 mg PO BIDWM 12/06/22 [History] tadalafiL [Tadalafil] 10 mg PO DAILY 10/11/24 [History] Travel Risk - International Travel Have you traveled outside of the country in past 3 weeks: No - Emerging Infectious Disease Are you exhibiting symptoms associated with any current EIDs: Yes Symptoms: Abdominal Pain <LE WHITE - Last Filed: 10/11/24 06:46> - Review of Systems Constitutional: No Symptoms Ears, Nose, & Throat: No Symptoms Respiratory: No Symptoms Cardiac: No Symptoms Abdominal/Gastrointestinal: Abdominal Pain Genitourinary Symptoms: No Symptoms Musculoskeletal: No Symptoms Neurological: No Symptoms Psychological: No Symptoms Endocrine: No Symptoms Hematologic/Lymphatic: No Symptoms Immunological/Allergic: No Symptoms <CHRISTOPHERLE - Last Filed: 10/11/24 06:46> - Past Medical History Pertinent Past Medical History: Yes Neurological History: Migraines ENT History: No Pertinent History Cardiac History: Hypertension Respiratory History: No Pertinent History Endocrine Medical History: Diabetes Type II Musculoskeletal History: Osteoarthritis GI Medical History: Diverticulitis History: No Pertinent History Psycho-Social History: No Pertinent History Male Reproductive Disorders: No Pertinent History Other Medical History: 5 TOTAL SURGERIES ON R KNEE - Past Surgical History Past Surgical History: Yes Neuro Surgical History: No Pertinent History Cardiac: No Pertinent History Respiratory: No Pertinent History Gastrointestinal: Appendectomy Genitourinary: No Pertinent History Musculoskeletal: Orthopedic Surgery Male Surgical History: No Pertinent History Other Surgical History: RIGHT LOWER LEG-SCREWS/PLATES, Knee scope, back surgery Significant Family History: no pertinent family hx - Social History Smoking Status: Never smoker How long have you smoked: YRS Exposure to second hand smoke: No Alcohol Use: Socially Drug Use: none Patient Lives Alone: No - Social Determinants of Health Will the patient participate in the screening: Yes Do you worry about a steady place to live?: No Do you have any problems with any of the following?: No known problems In the past 12 months,have you had to go without utilities?: No Transportation Issues: No Has anyone in your support network made you feel unsafe?: No Have you or anyone in your house had to go without enough: No <CHRISTOPHERLE - Last Filed: 10/11/24 06:46> - Physical Exam General Appearance: no apparent distress, alert Eye Exam: PERRL/EOMI Ears, Nose, Throat Exam: normal ENT inspection Neck Exam: normal inspection, non-tender, supple, full range of motion Respiratory Exam: normal breath sounds, lungs clear Cardiovascular Exam: regular rate/rhythm, normal heart sounds Gastrointestinal/Abdomen Exam: soft, normal bowel sounds, tenderness (Lower abdo men across with no guarding or rebound) Back Exam: normal inspection, normal range of motion Extremity Exam: normal inspection, normal range of motion Neurologic Exam: alert, oriented x 3, cooperative Skin Exam: normal color Lymphatic Exam: adenopathy SpO2 Interpretation: normal SpO2: 98 O2 Delivery: Room Air <CHRISTOPHERLE - Last Filed: 10/11/24 06:46> - Nursing Vital Signs Nursing Vital Signs: Initial Vital Signs Pulse Rate 110 H 10/11/24 06:06 Blood Pressure 138/101 10/11/24 06:06 O2 Sat by Pulse Oximetry 96 10/11/24 06:06 Pain Scale Pain Intensity 8 Ordered Tests: Active Orders 24 hr Category Date Time Status IV Insertion STAT Care 10/11/24 06:35 Active ABDOMEN AND PELVIS W/0 CONTRAS [CT] Stat Exams 10/11/24 06:52 Taken CBC W DIFF Stat Lab 10/11/24 06:20 Completed CMP Stat Lab 10/11/24 06:20 Completed LIPASE Stat Lab 10/11/24 06:20 Completed UA W/RFX UR CULTURE Stat Lab 10/11/24 06:36 Ordered Medication Summary Generic Name Dose Route Start Last Admin Trade Name Miguelq PRN Reason Stop Dose Admin Levofloxacin 500 mg 10/11/24 08:07 Levofloxacin 500 Mg Tablet PO 10/11/24 08:08 STAT ONE Metronidazole 500 mg 10/11/24 08:07 Metronidazole 500 Mg Tablet PO 10/11/24 08:08 STAT ONE Discontinued Medications Generic Name Dose Route Start Last Admin Trade Name Freq PRN Reason Stop Dose Admin Hydromorphone HCl 1 mg 10/11/24 08:06 Hydromorphone 1 Mg/1ml Inj IV 10/11/24 08:07 STAT ONE Ketorolac Tromethamine 30 mg 10/11/24 06:35 10/11/24 06:42 Ketorolac Tromethamine 30 Mg/Ml Inj IV 10/11/24 06:36 30 mg STAT ONE Administration Ketorolac Tromethamine Confirm 10/11/24 06:41 Ketorolac Tromethamine 30 Mg/Ml Inj Administered 10/11/24 06:42 Dose 30 mg .ROUTE .STK-MED ONE Ondansetron HCl 4 mg 10/11/24 06:35 10/11/24 06:41 Ondansetron Hcl 4 Mg/2 Ml Vial IV 10/11/24 06:36 4 mg STAT ONE Administration Ondansetron HCl Confirm 10/11/24 06:41 Ondansetron Hcl 4 Mg/2 Ml Vial Administered 10/11/24 06:42 Dose 4 mg .ROUTE .STK-MED ONE Lab/Rad Data: Laboratory Result Diagrams 10/11/24 06:20 10/11/24 06:20 Laboratory Results 10/11/24 10/11/24 Range/Units 06:20 06:20 WBC 8.3 (4.23-9.07) x10^3/uL RBC 5.37 (4.63-6.08) x10^6/uL Hgb 15.2 (13.7-17.5) g/dL Hct 44.6 (40.1-51.0) % MCV 83.1 (79.0-92.2) fL MCH 28.3 (25.7-32.2) pg MCHC 34.1 (32.3-36.5) g/dL RDW 13.5 (11.6-14.4) % Plt Count 164 (163-337) x10^3/uL MPV 11.1 (9.4-12.4) fL Gran % 65.8 (34.0-67.9) % Immature Gran % (Auto) 0.4 (0.001-0.429) % Nucleat RBC Rel Count 0.0 (0.00-0.2) % Eos # (Auto) 0.13 (0.04-0.54) x10^3/uL Immature Gran # (Auto) 0.03 (0.001-0.031) x10^3u/L Absolute Lymphs (auto) 1.92 (1.32-3.57) x10^3/uL Absolute Monos (auto) 0.70 (0.30-0.82) x10^3/uL Absolute Nucleated RBC 0.00 (0.00-0.012) x10^3u/L Lymphocytes % 23.2 (21.8-53.1) % Monocytes % 8.5 (5.3-12.2) % Eosinophils % 1.6 (0.8-7.0) % Basophils % 0.5 (0.2-1.2) % Absolute Granulocytes 5.44 H (1.78-5.38) x10^3/uL Basophils # 0.04 (0.01-0.08) x10^3/uL Sodium 133 L (135-145) mmol/L Potassium 4.2 (3.5-5.1) mmol/L Chloride 101 (98-107) mmol/L Carbon Dioxide 22 (22-30) mmol/L Anion Gap 13.6 (5-15) MEQ/L BUN 23 H (9-20) mg/dL Creatinine 0.91 (0.66-1.25) mg/dL Estimated GFR 109.3 ML/MIN Glucose 316 H (74-106) mg/dL Calcium 9.2 (8.4-10.2) mg/dL Total Bilirubin 0.50 (0.2-1.3) mg/dL AST 24 (17-59) U/L ALT 30 (0-50) U/L Alkaline Phosphatase 90 (38-126) U/L Serum Total Protein 7.3 (6.3-8.2) g/dL Albumin 4.3 (3.5-5.0) g/dL Lipase 66 (23-300) U/L <LE WHITE - Last Filed: 10/11/24 06:46> - Progress Progress: improved, pain not gone completely, re-examined Counseled pt/family regarding: lab results, diagnosis, need for follow-up, rad results <SHARONA NUNEZ - Last Filed: 10/11/24 08:12> - Progress Progress Note: 10/11/24 06:57 39 years old is evaluated in the ER for lower abdominal pain since 4 AM with no vomiting and diarrhea. Patient has history of diverticulitis with similar symptoms. He is given Toradol for symptomatic relief and acute abdomen workup is ordered. Care is transferred to Dr. Nunez at end of my shift for reevaluation and final disposition. (LE WHITE) 10/11/24 08:08 I interpreted the patient's laboratory data results. Based on the laboratory data results, the patient does not have an emergent, medical issue. The CT scan of the abdomen pelvis without contrast was interpreted by the radiologist and I reviewed the impression. The impression states mild, noncompl icated sigmoid diverticulitis (SHARONA NUNEZ) Medical Desision Making - Independent Historian Additional History obtained from: Family - Diagnostic Testing Diagnostic test were ordered, analyzed, and reviewed by me: Yes Radiological Interpretation: Reviewed by me, Teleradiologist Report - Risk of complications The pt has a mod risk of morbidity or mortality based on: Need for prescription drug management <SHARONA NUNEZ - Last Filed: 10/11/24 08:12> <LE WHITE - Last Filed: 10/11/24 06:46> - Departure Departure Disposition: Home Critical Care Time: No <SHARONA NUNEZ - Last Filed: 10/11/24 08:12> - Departure Clinical Impression: Diverticulitis of sigmoid colon Condition: Stable Referrals: [facility] [employer] [facility] [Primary Care Provider] - Follow up/PCP as directed Additional Instructions: Drink plenty of clear liquids. Do not advance your diet until you are taking clear liquids well and you have no abdominal pain. Call your primary care provider today, 10/11/2024 to make arrangements for follow-up appointment for further evaluation management. Prescriptions: Hydrocodone/APAP 5/325 [[place] 5/325 mg] 1 each PO Q8H PRN PRN #6 tablet MDD 3 PRN Reason: Pain Ciprofloxacin [Cipro 500 MG] 500 mg PO BID #14 tablet Metronidazole 500 mg [Flagyl 500 MG] 500 mg PO TID #21 tablet
[2024-10-11 06:50] LABS: Absolute Neutrophil Ct (ANC) 5.44 x10^3/uL (1.78-5.38); BASOPHIL % 0.5 % (0.2-1.2); Basophil (Absolute #) 0.04 x10^3/uL (0.01-0.08); Eosinophil % 1.6 % (0.8-7.0); Eosinophil (Absolute #) 0.13 x10^3/uL (0.04-0.54); Hematocrit 44.6 % (40.1-51.0); Hemoglobin 15.2 g/dL (13.7-17.5); IMMATURE GRAN # 0.03 x10^3u/L (0.001-0.031); IMMATURE GRAN % 0.4 % (0.001-0.429); Lymphocyte (Absolute #) 1.92 x10^3/uL (1.32-3.57); Lymphocytes % 23.2 % (21.8-53.1); Mean Cell Volume 83.1 fL (79.0-92.2); Mean Corpuscular Hemoglobin 28.3 pg (25.7-32.2); Mean Corpuscular Hgb Concent. 34.1 g/dL (32.3-36.5); Mean Platelet Volume 11.1 fL (9.4-12.4); Monocytes % 8.5 % (5.3-12.2); Neutrophil % 65.8 % (34.0-67.9); Platelet Count 164 x10^3/uL (163-337); Red Blood Count 5.37 x10^6/uL (4.63-6.08); Red Cell Distribution Width 13.5 % (11.6-14.4); White Blood Count 8.3 x10^3/uL (4.23-9.07)
[2024-10-11 07:04] LABS: ALBUMIN 4.3 g/dL (3.5-5.0); ANION GAP 13.6 MEQ/L (5-15); BILIRUBIN,TOTAL 0.5 mg/dL (0.2-1.3); Calcium 9.2 mg/dL (8.4-10.2); Creatinine 1 0.91 mg/dL (0.66-1.25); EST GLOMERULAR FILTRATION RATE 109.3 ML/MIN; Potassium 4.2 mmol/L (3.5-5.1); Total Protein 7.3 g/dL (6.3-8.2)
[2024-10-11 07:11] VITALS: PULSE 85
[2024-10-11 08:05] VITALS: O2SAT 96
[2024-10-11] MEDS ORDERED: Levofloxacin 500 MG Tablet ONE (08:23)
[2024-10-11] MEDS ORDERED: Hydromorphone 1 mg/ml Injection ONE (08:24)
[2024-10-11] MEDS ORDERED: Flagyl 500 MG ONE (08:24)
[2024-10-11] MEDS: Levofloxacin 500 MG Tablet PO ONE (08:25)
[2024-10-11] MEDS: Hydromorphone 1 mg/ml Injection IV ONE (08:25)
[2024-10-11] MEDS: Flagyl 500 MG PO ONE (08:25)
[2024-10-11 08:46] VITALS: BP 131/82
[2024-10-11 08:56] LABS: Appearance Clear (Clear); Bacteria None Seen /HPF (None Seen); Bilirubin Negative (Negative); Blood Negative (Negative); Epithelial Cells None Seen /HPF (None Seen); Glucose, Urine >=1000 mg/dL (Negative); Ketones Negative (Negative); Leukocyte Esterase Negative (Negative); Nitrite Negative (Negative); Protein,Urine Dip Negative (Negative); RBC 0-2 /HPF (0-5); Specific Gravity 1.025 (1.005-1.030); Urobilinogen 0.2 mg/dL (0.2); WBC 0-2 /HPF (0-5)
--- NOTE | 2024-10-11 09:24 | XRAY ---
Indication: Pelvic pain. Diverticulitis. Multiple contiguous axial images obtained through the abdomen and pelvis without contrast. Comparison: September 18, 2021. Lung bases clear. Heart not enlarged. Noncontrasted stomach and bowel loops appear nonobstructed again the minimal scattered descending and sigmoid diverticulosis. Midsigmoid not demonstrates mild eccentric wall thickening with pericolonic stranding favoring mild diverticulitis. No free fluid/air. Incidental fatty liver. Remaining liver, gallbladder, pancreas, spleen, adrenal glands, kidneys, ureters, bladder, and aorta are unremarkable for noncontrast exam. Osseous structures intact again with mild lumbosacral junction degenerative disc disease. Impression: Recurrent non-complicated mild sigmoid diverticulitis. Incidental fatty liver.
== END 2024-10-11 08:45 | disposition home or self-care (01) ==
LOC: ED 05:59
DX: K57.32 Diverticulitis of large intestine without perforation or abscess without bleeding (principal); R10.30 Lower abdominal pain, unspecified; E11.9 Type 2 diabetes mellitus without complications; I10 Essential (primary) hypertension; Z79.891 Long term (current) use of opiate analgesic; Z79.84 Long term (current) use of oral hypoglycemic drugs; Z79.899 Other long term (current) drug therapy
CPT/HCPCS: 36415; 74176; 80053; 81001; 83690; 85025; 96374; 96375; 99284; J1171; J1885; J2405; A9270-GY